=== PATIENT | female | born 1995 ===

== ENCOUNTER → 2019-07-15 06:36 | Outpatient (CLI) | payer OTHER | END | disposition home or self-care (01) | LOC: LAB 06:36 | DX: D64.89 Other specified anemias (principal); E03.8 Other specified hypothyroidism ==

== ENCOUNTER → 2019-12-02 00:01 | Outpatient (CLI) | payer OTHER | END | disposition home or self-care (01) | LOC: PPH VACUNA 00:01 | DX: Z23 Encounter for immunization (principal) ==